=== PATIENT | male | born 1995 | race Caucasian/White ===

== ENCOUNTER 2019-08-10 12:07 | Emergency (ER) | payer SELFPAY ==
[~2019-08-10] VITALS: Ht 162.6 cm; Wt 70.7 kg
[2019-08-10] MEDS ORDERED: CYCLOBENZAPRINE 10MG TABLET PO ONE (12:45)
[2019-08-10] MEDS ORDERED: KETOROLAC 30 MG/ML 1ML VIAL IM ONE (12:45)
[2019-08-10] MEDS ORDERED: ACETAMINOPHEN 325 MG TAB PO ONE (12:45)
[2019-08-10 13:31] VITALS: BP 142/80
[2019-08-10] MEDS ORDERED: KETO10TAB PO (13:38)
[2019-08-10] MEDS ORDERED: CYCL-707 PO (13:38)
== END 2019-08-10 13:46 | disposition home or self-care (01) ==
LOC: M ED 12:07
DX: S39.012A Strain of muscle, fascia and tendon of lower back, initial encounter (principal); X50.0XXA Overexertion from strenuous movement or load, initial encounter; Y92.9 Unspecified place or not applicable
CPT/HCPCS: 96372; 99283; J1885

== ENCOUNTER → 2023-06-16 | Outpatient (CLI) | payer OTHER ==
[~2023-06-16] MED LIST: CYCL-707 PO; KETO10TAB PO
== END ==
LOC: M SLEEP 20:00
PROVIDERS: ATTEND Nurse Practitioner Family
DX: G47.33 Obstructive sleep apnea (adult) (pediatric) (principal)

== ENCOUNTER 2024-10-27 01:58 | Emergency (ER) | payer OTHER ==
[~2024-10-27] VITALS: Ht 162.6 cm; Wt 63.0 kg
[2024-10-27 02:40] LABS: PLATELET COUNT, AUTOMATED 227 10^3/uL (150-450)
[2024-10-27 03:08] LABS: ETHYL ALCOHOL (ETHANOL) 0.262 % (0.000-0.010)
[2024-10-27 03:09] LABS: AMPHETAMINES LEVEL URINE NEGATIVE (NEGATIVE); BARBITURATES URINE NEGATIVE (NEGATIVE)
[2024-10-27 03:10] LABS: ALT/SGPT 30 U/L (7.0-40); AST/SGOT 31 U/L (<34); BENZODIAZEPINES URINE NEGATIVE (NEGATIVE); CALCIUM LEVEL 9.0 MG/DL (8.5-10.1); CARBON DIOXIDE LEVEL 24 MMOL/L (20-31); CHLORIDE LEVEL 108 MMOL/L (98-107); COCAINE METABOLITE URINE NEGATIVE (NEGATIVE); CREATININE FOR GFR 0.86 MG/DL (0.70-1.30); GLOMERULAR FILTRATION RATE > 90.0 (>60); METHADONE URINE NEGATIVE (NEGATIVE); OPIATES URINE NEGATIVE (NEGATIVE); PHENCYCLIDINE URINE NEGATIVE (NEGATIVE); POTASSIUM SERUM 4.4 MMOL/L (3.5-5.1); SALICYLATE LEVEL < 3.0 MG/DL (<30); SODIUM LEVEL 145 MMOL/L (136-145)
[2024-10-27 03:12] LABS: CANNABINOIDS URINE POSITIVE (NEGATIVE)
[2024-10-27] MEDS: ACETAMINOPHEN 500 MG TAB PO ONE (07:32)
[2024-10-27] MEDS: ONDANSETRON 4MG ORAL DISINTEGRATING TAB PO ONE (07:32)
[2024-10-27 10:46] VITALS: BP 151/93; TEMP 97.1; O2SAT 100
== END 2024-10-27 10:50 | disposition home or self-care (01) ==
LOC: M ED 01:58
DX: F10.120 Alcohol abuse with intoxication, uncomplicated (principal); G47.33 Obstructive sleep apnea (adult) (pediatric); Z79.2 Long term (current) use of antibiotics; Z79.899 Other long term (current) drug therapy